=== PATIENT | male | born 1965 | race Two or more races ===

== ENCOUNTER 2022-12-14 14:57 | Emergency (ER) | payer OTHER ==
[~2022-12-14] VITALS: Ht 172.7 cm; Wt 73.0 kg
[2022-12-14] MEDS ORDERED: HYDROcodone-ACET 5/325MG TAB PO ONE (16:00)
[2022-12-14] MEDS ORDERED: TETANUS-DIPTH-ACEL PERTUSSIS 0.5ML SYR Tdap IM ONE (17:45)
[2022-12-14] MEDS ORDERED: IBUP-1455 PO (19:57)
[2022-12-14 20:06] VITALS: BP 148/92
== END 2022-12-14 20:10 | disposition home or self-care (01) ==
LOC: ER 14:57
DX: S61.216A Laceration without foreign body of right little finger without damage to nail, initial encounter (principal); S69.91XA Unspecified injury of right wrist, hand and finger(s), initial encounter; Z88.0 Allergy status to penicillin; Z88.8 Allergy status to other drugs, medicaments and biological substances; W29.1XXA Contact with electric knife, initial encounter; Y93.89 Activity, other specified; Y92.89 Other specified places as the place of occurrence of the external cause; Y99.8 Other external cause status
CPT/HCPCS: 12001; 73200; 90471; 90715